=== PATIENT | male | born 1955 | race Caucasian/White ===

== ENCOUNTER 2023-10-10 14:19 | Observation (INO) ==
[2023-10-10 15:06] LABS: Basophils # (auto) 0.05 K/uL (0.00-0.20); Basophils % (auto) 0.8 %; Eosinophils # (auto) 0.17 K/uL (0.00-0.50); Eosinophils % (auto) 2.8 %; Hematocrit (blood only) 48.4 % (42.0-52.0); Hemoglobin 17.1 g/dl (14.0-18.0); Immature Granulocytes # (auto) 0.01 K/uL (0.01-0.20); Immature Granulocytes % (auto) 0.2 %; Lymphocytes # (auto) 2.26 K/uL (1.20-3.40); Lymphocytes % (auto) 37.2 %; Mean Corpuscular Hemoglobin 33.7 pg (25.0-34.0); Mean Corpuscular Hgb Conc 35.3 g/dL (32.0-36.0); Mean Corpuscular Volume 95.5 fL (80.0-100.0); Mean Platelet Volume 9.9 fL (9.4-12.4); Monocytes % (auto) 8.2 %; Neutrophils # (auto) 3.08 K/uL (1.40-6.50); Neutrophils % (auto) 50.8 %; Platelet Count 138 K/uL (130-400); RDW Coefficient of Variation 13.5 % (11.5-14.5); RDW Standard Deviation 47.4 fL (36.4-46.3); Red Blood Count 5.07 M/uL (4.70-6.10); White Blood Count 6.07 K/ul (4.8-10.8)
--- NOTE | 2023-10-10 15:07 | XRay Report ---
XR chest 1V not portable CLINICAL HISTORY: Chest pain, nonspecific TECHNIQUE: Single frontal radiograph of the chest was obtained. Comparison: None available at the time of this dictation. FINDINGS: No lines and tubes are seen. The cardiomediastinal silhouette is normal. The lungs are clear. No evid ence of pleural effusion or pneumothorax. IMPRESSION: No acute chest disease. ACT 112: Negative or not required by law. Electronically signed by: Chip Dey M.D. 10/10/2023 3:05 PM
[2023-10-10 15:20] LABS: Albumin Globulin Ratio 1.3 (0.9-2); Albumin Level 4.5 gm/dl (3.4-5.0); BUN Creatinine Ratio 17.5 (10-20); Bilirubin,Total 0.8 mg/dl (0.2-1.0); Calcium 10.8 mg/dl (8.6-10.3); Creatinine Clr Calc Pharmacy 77.9 ml/min; Est GFR (African American) 86.1 ml/min; Est GFR (Non-African American) 74.3 ml/min; Globulin 3.6 gm/dl (2.5-4.0); Potassium 3.6 mmol/L (3.5-5.1); Total Protein 8.1 gm/dl (6.0-8.3)
[2023-10-10 15:26] LABS: Troponin I High Sensitivity 11.5 pg/ml (0-20)
[2023-10-10 15:34] LABS: Partial Thromboplastin Time 28 Seconds (21-31); Prothrombin Time 11.4 Seconds (9.0-12.0)
--- NOTE | 2023-10-10 16:45 | Emergency Department Note ---
Impression & Plan Chest pain ED Provider Note Diagnosis: Chest pain Disposition: Admission CHIEF COMPLAINT: Chest pain HPI: Patient is a 68-year-old male presenting with complaint of intermittent episodes of chest pain. Patient states mostly left anterior chest wall sharp in nature. Patient states the symptoms are intermittent. Patient states been ongoing for multiple days time but worse today. Patient does state that started while shoveling snow 1 to 2 days prior. Patient does not have active symptoms when I evaluated in the ER bay. Patient states history of SVT status post ablation. Patient states strong family history of brother who in his early 60s of heart disease as well as a parent who of heart attack. Patient states his only other risk factor is hypertension as well as protein C. No prior cardiac catheterizations ever before. PAST MEDICAL HISTORY: See Below PAST SURGICAL HISTORY: See Below SOCIAL HISTORY: See Below HOME MEDICATIONS: See Below ALLERGIES: See Below VITALS: See Below PHYSICAL EXAMINATION: GENERAL: Well appearing, well nourished, NAD, non-toxic. EYE EXAM: Normal conjunctiva. OROPHARYNX: Moist mucus membranes. Grossly normal dentition. NECK: Supple, LUNGS: Clear to auscultation. Normal chest wall mechanics. HEART: NSR ABDOMEN: Abdomen soft, non-tender, normo-active bowel sounds, no masses, no rebound or guarding BACK: No CVA TTP. SKIN: No rashes and no bruising. UPPER EXTREMITIES: Upper extremities are grossly normal LOWER EXTREMITIES: Grossly normal, no edema. NEURO EXAM: A&O x3,, normal speech, moves all 4 extremities PSYCH: Cooperative MEDICAL DECISION MAKING: History obtained from: Patient ER Course: Patient is a 68-year-old male presenting with intermittent episodes of left anterior chest wall pain that radiates to left arm. Patient states a history of SVT status post ablation previously. Patient states a history of hypertension. Patient took aspirin today already. Patient states this originally started when he was shoveling snow the other day and now it has continued intermittently without any exertion. Patient's EKG without signs of ischemia. Patient's troponins are negative. Patient's case discussed with cardiology and due to strong family history recommends admission for observation for stress test. Labs (independently interpreted) are significant for: Negative troponins x 2 Imaging results (independently interpreted): Chest x-ray clear EKG interpretation (independently interpreted): Sinus rhythm no ST segment elevation or depression Consultants: Wildlife Photographer , discussed patient's presentation and EKG and family history. Due to significant family history of cardiac arrest from coronary artery disease in family members who recommends observation admission for stress test. Triage Nursing notes reviewed and agree them. Vital Signs: reviewed and remarkable for: no significant abnormalities Past Med/Surg History Social History Smoking Status: Never smoker Hx Substance Use: No Preferred Language: Telugu Communication Ability: Effective Beliefs That Will Affect Care: None Current Living Situation: Spouse Feels Safe at Home: Yes Assistive Devices: Glasses Allergies Allergies Allergy/AdvReac Type Severity Reaction Status Date / Time No Known Allergies Allergy Unverified 10/10/23 18:15 Home Meds Home Medications Medication Instructions Recorded Confirmed aspirin 81 mg tablet 81 mg PO [facility] 05/27/21 10/10/23 cetirizine 10 mg tablet 10 mg PO [facility] 05/27/21 10/10/23 multivitamin 1 cap PO [facility] 05/27/21 10/10/23 simvastatin 40 mg tablet 40 mg PO [facility] 05/27/21 10/10/23 tamsulosin 0.4 mg capsule 0.4 mg PO M 05/27/21 10/10/23 tramadol 50 mg tablet 50 mg PO Q8H PRN Pain 05/27/21 10/10/23 fluticasone propionate 50 2 spray intranasal DAILY PRN 10/10/23 10/10/23 mcg/actuation nasal Allergy Symptoms spray,suspension metoprolol succinate 100 mg 50 mg PO [facility] 10/10/23 10/10/23 tablet,extended release 24 hr Results & Data (ED) Vital Signs Vital Signs - 24 hr 10/10/23 14:23 10/10/23 15:57 10/10/23 15:57 Temperature 36.3 C L Temperature Source Temporal Artery Scan Pulse Rate 77 87 Pulse Rate [Right Radial] Pulse Rhythm [Right Radial] Respiratory Rate 16 15 Respiratory Effort / Characteristics Non-Labored Spontaneous Respiratory Depth Normal Respiratory Pattern Regular Blood Pressure 184/116 H Blood Pressure [Right Arm] Blood Pressure Mean 138 Blood Pressure Mean [Right Arm] Blood Pressure Position [Right Arm] Pulse Oximetry 95 95 95 Oxygen Delivery Method Room Air Room Air Room Air Sepsis Recent Fever Within 48 Hours No Sepsis New/Unexplained Change in Mental Status N/A Sepsis Action Taken by Nursing No Action Required 10/10/23 16:03 10/10/23 18:00 10/10/23 20:09 Temperature Temperature Source Pulse Rate Pulse Rate [Right Radial] 69 68 60 Pulse Rhythm [Right Radial] Regular Respiratory Rate 19 18 18 Respiratory Effort / Characteristics Non-Labored Non-Labored Spontaneous Respiratory Depth Normal Normal Respiratory Pattern Regular Regular Blood Pressure Blood Pressure [Right Arm] 133/89 140/100 176/95 H Blood Pressure Mean Blood Pressure Mean [Right Arm] 103 113 122 Blood Pressure Position [Right Arm] Lying Pulse Oximetry 95 97 93 Oxygen Delivery Method Room Air Room Air Sepsis Recent Fever Within 48 Hours Sepsis New/Unexplained Change in Mental Status Sepsis Action Taken by Nursing Laboratory Data 10/10/23 14:39 10/10/23 14:39 Lab Results 10/10/23 10/10/23 10/10/23 Range/Units 14:39 14:40 16:53 WBC 6.07 (4.8-10.8) K/ul RBC 5.07 (4.70-6.10) M/uL Hgb 17.1 (14.0-18.0) g/dl Hct 48.4 (42.0-52.0) % MCV 95.5 (80.0-100.0) fL MCH 33.7 (25.0-34.0) pg MCHC 35.3 (32.0-36.0) g/dL RDW Std Deviation 47.4 H (36.4-46.3) fL RDW Coeff of Chong 13.5 (11.5-14.5) % Plt Count 138 (130-400) K/uL MPV 9.9 (9.4-12.4) fL Immature Gran % (Auto) 0.2 % Neut % (Auto) 50.8 % Lymph % (Auto) 37.2 % [place] % (Auto) 8.2 % Eos % (Auto) 2.8 % Baso % (Auto) 0.8 % Neut # (Auto) 3.08 (1.40-6.50) K/uL Lymph # (Auto) 2.26 (1.20-3.40) K/uL [place] # (Auto) 0.50 (0.11-0.59) K/uL Eos # (Auto) 0.17 (0.00-0.50) K/uL Baso # (Auto) 0.05 (0.00-0.20) K/uL Immature Gran # (Auto) 0.01 (0.01-0.20) K/uL PT 11.4 (9.0-12.0) Seconds INR 1.0 (0.9-1.1) APTT 28 (21-31) Seconds PTT Ratio 1.0 D-Dimer 590 H* (0-500) ug/L FEU Sodium 141 (136-145) mmol/L Potassium 3.6 (3.5-5.1) mmol/L Chloride 103 (98-107) mmol/L Carbon Dioxide 31 (21-32) mmol/L Anion Gap 7 (3-11) BUN 18 (6-23) mg/dl Creatinine 1.03 (0.6-1.4) mg/dl Est Cr Clr Drug Dosing 77.9 ml/min Est GFR ( Amer) 86.1 ml/min Est GFR (Non-Af Amer) 74.3 ml/min BUN/Creatinine Ratio 17.5 (10-20) Glucose 113 H (70-99(Fasting)) mg/dl Estimat Average Glucose 151 mg/dl Hemoglobin A1c 6.9 H (4.5-5.6) % Calcium 10.8 H (8.6-10.3) mg/dl Magnesium 2.0 (1.7-2.4) mg/dl Total Bilirubin 0.8 (0.2-1.0) mg/dl AST 27 (13-39) U/L ALT 31 (7-52) U/L Alkaline Phosphatase 78 (34-104) U/L Troponin I High Sens 11.5 10.3 (0-20) pg/ml Total Protein 8.1 (6.0-8.3) gm/dl Albumin 4.5 (3.4-5.0) gm/dl Globulin 3.6 (2.5-4.0) gm/dl Albumin/Globulin Ratio 1.3 (0.9-2) Lyme Disease IgG Ab Negative (Negative) Lyme Disease IgM Ab Negative (Negative) Administered Medications Lactated Ringer's (Lr) 1,000 mls @ 100 mls/hr IV .Q10H ONE Stop: 10/11/23 05:36 Last Admin: 10/10/23 20:06 Dose: 100 mls/hr Documented By: MARIBEL Discontinued Medications Ioversol (Optiray 320 125ml) 118 ml IV ONCE ONE Stop: 10/10/23 20:30 Last Admin: 10/10/23 20:30 Dose: 118 ml Documented By: PLW Lisinopril (Lisinopril 2.5 Mg Tab) 2.5 mg PO NOW ONE Stop: 10/10/23 20:19 Last Admin: 10/10/23 20:58 Dose: 2.5 mg Documented By: MARIBEL Imaging Data Radiologist's Impression: Chest X-Ray 10/10/23 14:24 XR chest 1V not portable CLINICAL HISTORY: Chest pain, nonspecific TECHNIQUE: Single frontal radiograph of the chest was obtained. Comparison: None available at the time of this dictation. FINDINGS: No lines and tubes are seen. The cardiomediastinal silhouette is normal. The lungs are clear. No evidence of pleural effusion or pneumothorax. IMPRESSION: No acute chest disease. ACT 112: Negative or not required by law. Electronically signed by: Chip Dey M.D. 10/10/2023 3:05 PM Chest CTA 10/10/23 20:09 Exam(s): CTA CHEST IV Amt: 118 ml opti 320 EXAM: CT Angiography Chest With Intravenous Contrast CLINICAL HISTORY: Reason for exam: cp. TECHNIQUE: Axial computed tomographic angiography images of the chest with intravenous contrast. CTDI is 28.14 mGy and DLP is 901.78 mGy-cm. Automated exposure control was utilized for the study. A dose lowering technique was utilized adhering to the principles of ALARA. MIP reconstructed images were created and reviewed. COMPARISON: No relevant prior studies available. FINDINGS: Pulmonary arteries: Unremarkable. No pulmonary embolism. Aorta: No acute findings. No thoracic aortic aneurysm. Lungs: Unremarkable. No mass. No consolidation. Pleural space: Unremarkable. No significant effusion. No pneumothorax. Heart: Unremarkable. No cardiomegaly. No significant pericardial effusion. No evidence of RV dysfunction. Bones/joints: No acute fracture. No dislocation. Soft tissues: Unremarkable. Lymph nodes: Unremarkable. No enlarged lymph nodes. Liver: Hepatic steatosis. Gallbladder and bile ducts: Cholelithiasis. IMPRESSION: No acute findings in the visualized arteries of the chest. Electronically signed by: Monico Resendiz MD 10/10/23 21:20 PM Discharge Plan Visit Data Chief Complaint: Chest Pain Stated Complaint: CHEST PAINS, LEFT ARM PAIN, HIGH BP ED Provider: Varun Herron Discharge Problem: Chest pain Forms Stand Alone Forms: My [facility] [employer] Prescriptions Prescriptions: No Action cetirizine 10 mg Tablet 10 mg PO QAM tramadol 50 mg Tablet 50 mg PO Q8H PRN (Reason: Pain) simvastatin 40 mg Tablet 40 mg PO QAM tamsulosin 0.4 mg Capsule 0.4 mg PO QAM aspirin 81 mg Tablet 81 mg PO QAM multivitamin Capsule 1 cap PO QAM fluticasone propionate [Flonase] 50 mcg/actuation [place],Suspension 2 spray INTRANASAL DAILY PRN (Reason: Allergy Symptoms) Rx Instructions: administer into each nostril metoprolol succinate 100 mg tablet extended release 24 hr 50 mg PO QAM Referrals Referrals: PCP,NO [Primary Care Provider] -
[2023-10-10 17:35] LABS: Troponin I High Sensitivity 10.3 pg/ml (0-20)
[2023-10-10 17:57] LABS: D Dimer 590 ug/L FEU (0-500)
[2023-10-10] MEDS ORDERED: LACTATED RINGER'S 1,000 ML IV ONE (19:37)
--- NOTE | 2023-10-10 20:09 | History & Physical Report ---
Date of Service October 10, 2023 Assessment & Plan (1) Chest pain: Plan: ? Secondary to uncontrolled blood pressure Rule out ACS given patient risk factors for ischemic heart disease AVNRT status post ablation hyperlipidemia on statin Rx history protein C deficiency, family history of blood clots prediabetes, outpatient hemoglobin A1c of 6.1 last November 2022 BPH, stable on Flomax RISHABH on CPAP OBS PCU Add lisinopril to beta-naomy for BP control Cardiology consult in a.m. Re: Chest pain N.p.o. until patient seen by cardiology in anticipation of ischemic workup Update hemoglobin A1c DVT prophylaxis with Lovenox subcu Full code Patient requesting updates providers. Ms. Leticia Murrell, contact #[phone]. Text document was generated using [employer] voice recognition software. It may contain grammatical or spelling errors. Kindly contact undersigned for clarification of any documentation item in question. History of Present Illness Chief Complaint: Chest pain Primary Care Provider: Dr. Perkins History obtained from patient, family, and records. Medical history significant for hypertension, AVNRT status post ablation, hyperlipidemia, history protein C deficiency, prediabetes, BPH, RISHABH on CPAP. 2 days history of intermittent substernal pain with transient radiation to left arm. No headache, no cough complaints. No other associated symptoms. No prior episodes. Onset noted after shoveling snow few days ago. SBP 180s upon arrival at the ER. Medical History as above Surgical History : Carpal tunnel surgery, kidney stone procedure Family History : Heart disease, blood clots Personal/Social history : Non-smoker, no EtOH intake, retired factory employee Allergies Allergy/AdvReac Type Severity Reaction Status Date / Time No Known Allergies Allergy Unverified 10/10/23 18:15 Home Medications Medication Instructions Recorded Confirmed Type aspirin 81 mg tablet 81 mg PO QAM 05/27/21 10/10/23 History cetirizine 10 mg tablet 10 mg PO QAM 05/27/21 10/10/23 History multivitamin 1 cap PO QAM 05/27/21 10/10/23 History simvastatin 40 mg tablet 40 mg PO QAM 05/27/21 10/10/23 History tamsulosin 0.4 mg capsule 0.4 mg PO QAM 05/27/21 10/10/23 History tramadol 50 mg tablet 50 mg PO Q8H PRN Pain 05/27/21 10/10/23 History fluticasone propionate 50 2 spray intranasal DAILY PRN 10/10/23 10/10/23 History mcg/actuation nasal Allergy Symptoms spray,suspension metoprolol succinate 100 mg 50 mg PO QAM 10/10/23 10/10/23 History tablet,extended release 24 hr Past Med/Surg History Social History Smoking Status: Never smoker Do You Dip or Chew Tobacco: No; Hx Alcohol Use: Yes Alcohol type: beer Hx Substance Use: No Preferred Language: Zambian Communication Ability: Effective Model [employer] Greeter Required: No Beliefs That Will Affect Care: None Current Living Situation: Spouse Feels Safe at Home: Yes Assistive Devices: Glasses Review of Systems Review of Systems: As per HPI, all other systems reviewed and negative Physical Exam Physical Exam: GENERAL: Comfortable, obese, pleasant, no respiratory distress SKIN: Normal color, warm HEENT: [place] palpebral conjunctivae, no ptosis, dry buccal mucosa NECK : Supple, no tenderness CHEST : CTA, no tenderness HEART : RRR, no obvious murmurs ABDOMEN: Some distention, nontender EXTREMITIES : No LE swelling/tenderness, no other conspicuous deformities noted NEUROLOGIC : Coherent, no facial asymmetry, no other gross focality Results & Data Results & Data Vital Signs (Past 12 Hours) Vital Signs Temp Pulse Pulse Resp BP BP Pulse Ox 10/10/23 18:00 68 18 140/100 97 10/10/23 16:03 69 19 133/89 95 10/10/23 15:57 87 15 95 10/10/23 15:57 95 10/10/23 14:23 36.3 C L 77 16 184/116 H 95 O2 Del Method 10/10/23 18:00 Room Air 10/10/23 16:03 10/10/23 15:57 Room Air 10/10/23 15:57 Room Air 10/10/23 14:23 Room Air Laboratory Results Laboratory Results WBC 6.07 K/ul (4.8-10.8) 10/10/23 14:39 RBC 5.07 M/uL (4.70-6.10) 10/10/23 14:39 Hgb 17.1 g/dl (14.0-18.0) 10/10/23 14:39 Hct 48.4 % (42.0-52.0) 10/10/23 14:39 MCV 95.5 fL (80.0-100.0) 10/10/23 14:39 MCH 33.7 pg (25.0-34.0) 10/10/23 14:39 MCHC 35.3 g/dL (32.0-36.0) 10/10/23 14:39 RDW Std Deviation 47.4 fL (36.4-46.3) H 10/10/23 14:39 RDW Coeff of Chong 13.5 % (11.5-14.5) 10/10/23 14:39 Plt Count 138 K/uL (130-400) 10/10/23 14:39 MPV 9.9 fL (9.4-12.4) 10/10/23 14:39 Immature Gran % (Auto) 0.2 % 10/10/23 14:39 Neut % (Auto) 50.8 % 10/10/23 14:39 Lymph % (Auto) 37.2 % 10/10/23 14:39 [place] % (Auto) 8.2 % 10/10/23 14:39 Eos % (Auto) 2.8 % 10/10/23 14:39 Baso % (Auto) 0.8 % 10/10/23 14:39 Neut # (Auto) 3.08 K/uL (1.40-6.50) 10/10/23 14:39 Lymph # (Auto) 2.26 K/uL (1.20-3.40) 10/10/23 14:39 [place] # (Auto) 0.50 K/uL (0.11-0.59) 10/10/23 14:39 Eos # (Auto) 0.17 K/uL (0.00-0.50) 10/10/23 14:39 Baso # (Auto) 0.05 K/uL (0.00-0.20) 10/10/23 14:39 Immature Gran # (Auto) 0.01 K/uL (0.01-0.20) 10/10/23 14:39 PT 11.4 Seconds (9.0-12.0) 10/10/23 14:39 INR 1.0 (0.9-1.1) 10/10/23 14:39 APTT 28 Seconds (21-31) 10/10/23 14:39 PTT Ratio 1.0 10/10/23 14:39 D-Dimer 590 ug/L FEU (0-500) H* 10/10/23 16:53 Sodium 141 mmol/L (136-145) 10/10/23 14:39 Potassium 3.6 mmol/L (3.5-5.1) 10/10/23 14:39 Chloride 103 mmol/L (98-107) 10/10/23 14:39 Carbon Dioxide 31 mmol/L (21-32) 10/10/23 14:39 Anion Gap 7 (3-11) 10/10/23 14:39 BUN 18 mg/dl (6-23) 10/10/23 14:39 Creatinine 1.03 mg/dl (0.6-1.4) 10/10/23 14:39 Est Cr Clr Drug Dosing 77.9 ml/min 10/10/23 14:39 Est GFR ( Amer) 86.1 ml/min 10/10/23 14:39 Est GFR (Non-Af Amer) 74.3 ml/min 10/10/23 14:39 BUN/Creatinine Ratio 17.5 (10-20) 10/10/23 14:39 Glucose 113 mg/dl (70-99(Fasting)) H 10/10/23 14:39 Calcium 10.8 mg/dl (8.6-10.3) H 10/10/23 14:39 Magnesium 2.0 mg/dl (1.7-2.4) 10/10/23 16:53 Total Bilirubin 0.8 mg/dl (0.2-1.0) 10/10/23 14:39 AST 27 U/L (13-39) 10/10/23 14:39 ALT 31 U/L (7-52) 10/10/23 14:39 Alkaline Phosphatase 78 U/L (34-104) 10/10/23 14:39 Troponin I High Sens 10.3 pg/ml (0-20) 10/10/23 16:53 Total Protein 8.1 gm/dl (6.0-8.3) 10/10/23 14:39 Albumin 4.5 gm/dl (3.4-5.0) 10/10/23 14:39 Globulin 3.6 gm/dl (2.5-4.0) 10/10/23 14:39 Albumin/Globulin Ratio 1.3 (0.9-2) 10/10/23 14:39 Impressions Chest X-Ray 10/10/23 14:24 XR chest 1V not portable CLINICAL HISTORY: Chest pain, nonspecific TECHNIQUE: Single frontal radiograph of the chest was obtained. Comparison: None available at the time of this dictation. FINDINGS: No lines and tubes are seen. The cardiomediastinal silhouette is normal. The lungs are clear. No evidence of pleural effusion or pneumothorax. IMPRESSION: No acute chest disease. ACT 112: Negative or not required by law. Electronically signed by: Chip Dey M.D. 10/10/2023 3:[address] angio chest: No acute findings in the visualized arteries of the chest. Diagnostic Findings EKG as per my interpretation : Rate 75, NSR, LAD, LAFB, LVH, T wave flattening inferior leads
[2023-10-10] MEDS ORDERED: MoRPHine SULFATE 4 MG/ML 1 ML CARP\\VIAL IV PRN (20:13)
[2023-10-10] MEDS ORDERED: traMADol HCL 50 MG TABLET PO PRN (20:13)
[2023-10-10] MEDS ORDERED: PROMETHAZINE HCL 12.5 MG in SODIUM CHLORIDE 0.9% 50 ML IV PRN (20:13)
[2023-10-10] MEDS ORDERED: LORazepam 0.5 MG TAB PO PRN (20:13)
[2023-10-10] MEDS ORDERED: lisinopril 2.5 MG TAB PO ONE (20:18)
[2023-10-10] MEDS ORDERED: OPTIRAY 320 125ml IV ONE (20:29)
--- NOTE | 2023-10-10 21:21 | CT Scan Report ---
Exam(s): CTA CHEST IV Amt: 118 ml opti 320 EXAM: CT Angiography Chest With Intravenous Contrast CLINICAL HISTORY: Reason for exam: cp. TECHNIQUE: Axial computed tomographic angiography images of the chest with intravenous contrast. CTDI is 28.14 mGy and DLP is 901.78 mGy-cm. Automated exposure control was utilized for the study. A dose lowering technique was utilized adhering to the principles of ALARA. MIP reconstructed images were created and reviewed. COMPARISON: No relevant prior studies available. FINDINGS: Pulmonary arteries: Unremarkable. No pulmonary embolism. Aorta: No acute findings. No thoracic aortic aneurysm. Lungs: Unremarkable. No mass. No consolidation. Pleural space: Unremarkable. No significant effusion. No pneumothorax. Heart: Unremarkable. No cardiomegaly. No significant pericardial effusion. No evidence of RV dysfunction. Bones/joints: No acute fracture. No dislocation. Soft tissues: Unremarkable. Lymph nodes: Unremarkable. No enlarged lymph nodes. Liver: Hepatic steatosis. Gallbladder and bile ducts: Cholelithiasis. IMPRESSION: No acute findings in the visualized arteries of the chest. Electronically signed by: Monico Resendiz MD 10/10/23 21:20 PM
[2023-10-10 21:28] LABS: Estimated Average Glucose 151 mg/dl; Hemoglobin A1C 6.9 % (4.5-5.6)
[2023-10-10 21:29] LABS: Lyme Ab IgG w/WB Rflx Negative (Negative); Lyme Ab IgM w/WB Rflx Negative (Negative)
[2023-10-10] MEDS ORDERED: FLUTICASONE PROPIONATE NA SPR 16 GM BTL PRN (23:07)
--- NOTE | 2023-10-11 06:26 | Electrocardiogram Report ---
Test Reason : Blood Pressure : / mmHG Vent. Rate : 077 BPM Atrial Rate : 077 BPM P-R Int : 170 ms QRS Dur : 106 ms QT Int : 380 ms P-R-T Axes : 033 -44 015 degrees QTc Int : 430 ms Normal sinus rhythm Left axis deviation Moderate voltage criteria for LVH, may be normal variant Poor R wave progression, consider anterior HI vs. lead placement vs. LVH Abnormal ECG When compared with ECG of 27-MAY-2021 14:15, No significant change was found Confirmed by Paulino Michael ([id number]) on 10/11/2023 6:26:04 AM Referred By: Confirmed By:Paulino Michael
[2023-10-11 07:18] LABS: Basophils # (auto) 0.05 K/uL (0.00-0.20); Basophils % (auto) 0.9 %; Eosinophils # (auto) 0.22 K/uL (0.00-0.50); Eosinophils % (auto) 3.8 %; Hematocrit (blood only) 43.6 % (42.0-52.0); Hemoglobin 15.6 g/dl (14.0-18.0); Immature Granulocytes # (auto) 0.01 K/uL (0.01-0.20); Immature Granulocytes % (auto) 0.2 %; Mean Corpuscular Hemoglobin 34.1 pg (25.0-34.0); Mean Corpuscular Hgb Conc 35.8 g/dL (32.0-36.0); Mean Corpuscular Volume 95.2 fL (80.0-100.0); Mean Platelet Volume 9.9 fL (9.4-12.4); Monocytes # (auto) 0.58 K/uL (0.11-0.59); Monocytes % (auto) 9.9 %; Neutrophils % (auto) 44.2 %; Platelet Count 120 K/uL (130-400); RDW Coefficient of Variation 13.6 % (11.5-14.5); RDW Standard Deviation 47.8 fL (36.4-46.3); Red Blood Count 4.58 M/uL (4.70-6.10); White Blood Count 5.86 K/ul (4.8-10.8)
[2023-10-11 07:25] LABS: BUN Creatinine Ratio 19.4 (10-20); Calcium 9.7 mg/dl (8.6-10.3); Chol HDL Ratio 3.4 (0-5); Creatinine Clr Calc Pharmacy 88.5 ml/min; Est GFR (African American) 97.4 ml/min; Est GFR (Non-African American) 84.1 ml/min; Potassium 3.7 mmol/L (3.5-5.1)
[2023-10-11 07:33] VITALS: RESP 18
[2023-10-11] MEDS: METOPROLOL SUCC 50MG EXT REL TAB PO SCH ×2 (08:42→09:16)
[2023-10-11] MEDS ORDERED: NITROGLYCERIN SL 0.4 MG/TAB TAB SL PRN (08:46)
[2023-10-11] MEDS ORDERED: CETIRIZINE HCL 10 MG TABLET PO SCH (09:00)
[2023-10-11] MEDS ORDERED: MULTIVITAMIN TAB PO SCH (09:00)
[2023-10-11] MEDS ORDERED: ASPIRIN 81 MG ECTAB PO SCH (09:00)
[2023-10-11] MEDS ORDERED: ENOXAPARIN INJ 40 MG/0.4 ML SYR SQ SCH (09:00)
[2023-10-11] MEDS ORDERED: SIMVASTATIN 40 MG TAB PO SCH (09:00)
[2023-10-11] MEDS ORDERED: LOSARTAN POTASSIUM 25 MG TAB PO SCH (09:00)
[2023-10-11] MEDS ORDERED: TAMSULOSIN HCL 0.4 MG CAP PO SCH (09:00)
--- NOTE | 2023-10-11 09:29 | Cardiology Consultation ---
Date of Consultation October 11, 2023 Assessment & Plan (1) Atypical chest pain: (2) HTN (hypertension): (3) Coronary artery calcification: (4) Dyslipidemia, goal LDL below 70: Plan 68-year-old male admitted with chest discomfort. No evidence of NSTEMI. Pain ongoing for several days without ischemic ECG changes. Recommend bedside 2D transthoracic echocardiogram to assess LV function, regional wall motion, and exclude pericardial effusion. Add losartan 25 mg daily to improve blood pressure control. Continue hydrochlorothiazide and metoprolol. Metoprolol hold parameters adjusted for heart rate less than 50 bpm. If resting 2D transthoracic echocardiogram unremarkable, will likely proceed with treadmill stress testing later today. Further recommendations pending review of echocardiogram. Thank you for allow me to participate in the care of your patient. History of Present Illness Reason for Consultation: Chest pain Requesting Physician: Dr. Roach Attending Physician: Matthieu Barakat MD History of Present Illness 68-year-old male present to the emergency department per direction of the outpatient cardiology clinic due to chest discomfort. Describes chest pain beginning approximately 5 days ago. Describes a dull ache across his chest. Pain has been relatively constant and mild to moderate. Approximately 2 days ago in the a.m., he describes severe pain, 8/9/10. No associated shortness of breath, diaphoresis, or radiation of the discomfort. Mild, ongoing chest comfort noted since admission. Currently reports 1/10 chest pain. We administered 1 sublingual nitroglycerin at bedside with no improvement or change in the character of his discomfort. ECG without ischemic changes. His high-sensitivity troponin are within normal range. Due to an elevated D- dimer, CTA of the chest was performed which was negative for pulmonary embolus. Personal review of images demonstrates coronary artery calcifications. Blood pressure elevated on admission. Reports treatment with hydrochlorothiazide and metoprolol in the outpatient setting. Appears hydrochlorothiazide was not ordered on admission. He received 1 dose of lisinopril, 2.5 mg last evening. Blood pressure mildly improved this a.m. Allergies Allergy/AdvReac Type Severity Reaction Status Date / Time No Known Allergies Allergy Unverified 10/10/23 18:15 Home Medications Medication Instructions Recorded Confirmed Type aspirin 81 mg tablet 81 mg PO QAM 05/27/21 10/10/23 History cetirizine 10 mg tablet 10 mg PO QAM 05/27/21 10/10/23 History multivitamin 1 cap PO QAM 05/27/21 10/10/23 History simvastatin 40 mg tablet 40 mg PO QAM 05/27/21 10/10/23 History tamsulosin 0.4 mg capsule 0.4 mg PO QAM 05/27/21 10/10/23 History tramadol 50 mg tablet 50 mg PO Q8H PRN Pain 05/27/21 10/10/23 History fluticasone propionate 50 2 spray intranasal DAILY PRN 10/10/23 10/10/23 History mcg/actuation nasal Allergy Symptoms spray,suspension metoprolol succinate 100 mg 50 mg PO QAM 10/10/23 10/10/23 History tablet,extended release 24 hr Patient History Social History Smoking Status: Never smoker Do You Dip or Chew Tobacco: No; Hx Alcohol Use: Yes Alcohol type: beer Hx Substance Use: No Preferred Language: Beninese Communication Ability: Effective Cutter And Edge Trimmer Required: No Beliefs That Will Affect Care: None Current Living Situation: Spouse Feels Safe at Home: Yes Assistive Devices: Glasses Review of Systems Review of Systems: All systems reviewed & are unremarkable except as noted in Subjective Physical Exam Constitutional: well nourished; no acute distress Respiratory: no respiratory distress, no labored breathing and no retractions Auscultation: lungs clear to auscultation bilaterally; no crackles, no rales, no rhonchi and no wheezes Cardiovascular: Rate/Rhythm: regular rate, regular rhythm and + bradycardic Heart Sounds: normal S1 and normal S2; no murmur Vessels: radial pulses present; no JVD and no carotid bruit Extremities: no edema Gastrointestinal (Abdomen): Inspection/Auscultation: normal bowel sounds; abdomen not distended Percussion/Palpation: abdomen soft; abdomen nontender, no guarding and abdomen not rigid Neurologic: CN's II-XI intact bilaterally and moves all extremities; no focal motor deficits Results & Data Vital Signs (Past 12 Hours) Vital Signs Temp Pulse Pulse Resp BP Pulse Ox O2 Del Method 10/11/23 09:20 75 146/85 H 10/11/23 07:36 55 L 10/11/23 07:30 36.6 C 58 L 18 154/87 H 92 Room Air 10/11/23 03:36 17 95 01/16/24 03:14 36.5 C 54 L 16 148/86 H 94 CPAP 10/10/23 23:43 58 L 21 94 10/10/23 23:30 37.1 C 60 16 165/102 H 94 Room Air 10/10/23 23:19 63 FiO2 10/11/23 09:20 10/11/23 07:36 10/11/23 07:30 10/11/23 03:36 10/11/23 03:14 10/10/23 23:43 21 10/10/23 23:30 10/10/23 23:19 Laboratory Results Cardiac Enzymes 10/10/23 10/10/23 Range/Units 14:39 16:53 AST 27 (13-39) U/L Troponin I High Sens 11.5 10.3 (0-20) pg/ml Coagulation 10/10/23 Range/Units 14:39 PT 11.4 (9.0-12.0) Seconds APTT 28 (21-31) Seconds Lipids 10/11/23 Range/Units 06:50 Triglycerides 159 H (0-150) mg/dl Cholesterol 131 (0-200) mg/dl HDL Cholesterol 38 mg/dl Cholesterol/HDL Ratio 3.4 (0-5) CBC 10/10/23 10/11/23 Range/Units 14:39 06:50 WBC 6.07 5.86 (4.8-10.8) K/ul RBC 5.07 4.58 L (4.70-6.10) M/uL Hgb 17.1 15.6 (14.0-18.0) g/dl Hct 48.4 43.6 (42.0-52.0) % Plt Count 138 120 L (130-400) K/uL Neut # (Auto) 3.08 2.60 (1.40-6.50) K/uL Lymph # (Auto) 2.26 2.40 (1.20-3.40) K/uL [place] # (Auto) 0.50 0.58 (0.11-0.59) K/uL Eos # (Auto) 0.17 0.22 (0.00-0.50) K/uL Baso # (Auto) 0.05 0.05 (0.00-0.20) K/uL Comprehensive Metabolic Panel 10/10/23 10/11/23 Range/Units 14:39 06:50 Sodium 141 140 (136-145) mmol/L Potassium 3.6 3.7 (3.5-5.1) mmol/L Chloride 103 104 (98-107) mmol/L Carbon Dioxide 31 28 (21-32) mmol/L BUN 18 18 (6-23) mg/dl Creatinine 1.03 0.93 (0.6-1.4) mg/dl Glucose 113 H 142 H (70-99(Fasting)) mg/dl Calcium 10.8 H 9.7 (8.6-10.3) mg/dl AST 27 (13-39) U/L ALT 31 (7-52) U/L Alkaline Phosphatase 78 (34-104) U/L Total Protein 8.1 (6.0-8.3) gm/dl Albumin 4.5 (3.4-5.0) gm/dl Intake and Output 10/10/23 10/11/23 10/11/23 22:59 06:59 14:59 Intake Total 691.667 / 691.667 408.333 / 408.333 Output Total 450 / 450 Balance 241.667 / 241.667 408.333 / 408.333 Intake: IV 591.667 / 591.667 408.333 / 408.333 Lactated Ringer's 1,000 ml @ 591.667 / 591.667 408.333 / 408.333 100 mls/hr IV .Q10H ONE Rx#: [id number] Oral 100 / 100 Output: Urine 450 / 450 Other: Weight 103.1 kg Weight Measurement Method Built in [facility] (2) HTN (hypertension) Hypertension type: primary hypertension Qualified Code(s): I10 - Essential (primary) hypertension
[2023-10-11] MEDS ORDERED: hydroCHLOROthiazide 25 MG TAB PO SCH (09:30)
[2023-10-11] MEDS ORDERED: PERFLUTREN LIPID MICROSPHERE (DEFINITY) IV ONE (09:51)
[2023-10-11 11:36] VITALS: BP 130/85; PULSE 57; TEMP 98.1; O2SAT 90
--- NOTE | 2023-10-11 14:28 | Hospitalist Progress Note ---
Date of Service October 11, 2023 Assessment & Plan (1) Chest pain: Plan: Chest pain Likely due to uncontrolled hypertension --CTA:No acute findings in the visualized arteries of the chest. --ECHO no regional wall motion abnormality. EF 60 to 65%. Grade 1 diastolic dysfunction. Borderline concentric LVH. -- Troponin negative -- Lipid panel reviewed. LDL 61 --Nonischemic stress test --Appreciate cardiology input --Added losartan 25 mg daily for blood pressure control Continue HCTZ, metoprolol. Also on tamsulosin Continue aspirin 81 mg daily DM II New diagnosis HbA1C:6.9 Offered to be started on medications. Patient prefers to follow-up with PCP for further management Other chronic conditions: AVNRT S/P Ablation Hyperlipidemia: continue statin H/O Protein C deficiency, family history of blood clots BPH: Continue Flomax RISHABH on CPAP DVT Px: Lovenox SQ CODE STATUS Full code Disposition Home Admission and Anticipated Discharge Date Admission Date: October 10, 2023 Subjective Patient is seen and examined at bedside Reported minimal chest discomfort this morning during my encounter Had stress test today Denies any dyspnea, dizziness, nausea, vomiting, abdominal pain Discussed with patient's family at bedside Also discussed with cardiology today Review of Systems Review of Systems: All systems reviewed & are unremarkable except as noted in Subjective Physical Exam Physical Exam: Physical Exam: Vitals signs as noted above General Appearance:Obese, no apparent distress Head: normocephalic, Atraumatic Eyes: normal inspection, EOMI Neck: supple, Trachea midline Respiratory/Chest: Normal breath sounds, CTA, No accessory muscle use Cardiovascular: S1, S2, No murmur Abdomen/GI:Soft, Non tender, Bowel sounds present Extremities/Musculoskeletal:normal inspection, no edema Neurologic/Psych:AAOX3, grossly no focal neurological deficits Skin: normal color, warm Results & Data Results & Data Vital Signs (Past 12 Hours) Vital Signs Temp Pulse Pulse Resp BP Pulse Ox O2 Del Method 10/11/23 11:35 36.7 C 57 L 18 130/85 90 Room Air 10/11/23 09:20 75 146/85 H 10/11/23 07:36 55 L 10/11/23 07:30 36.6 C 58 L 18 154/87 H 92 Room Air 10/11/23 03:36 17 95 10/11/23 03:14 36.5 C 54 L 16 148/86 H 94 CPAP Laboratory Results Short CBC 10/10/23 10/11/23 Range/Units 14:39 06:50 WBC 6.07 5.86 (4.8-10.8) K/ul Hgb 17.1 15.6 (14.0-18.0) g/dl Hct 48.4 43.6 (42.0-52.0) % Plt Count 138 120 L (130-400) K/uL BMP 10/10/23 10/11/23 14:39 06:50 Sodium 141 140 Potassium 3.6 3.7 Chloride 103 104 Carbon Dioxide 31 28 BUN 18 18 Creatinine 1.03 0.93 Glucose 113 H 142 H Calcium 10.8 H 9.7 Liver Function 10/10/23 Range/Units 14:39 Total Bilirubin 0.8 (0.2-1.0) mg/dl AST 27 (13-39) U/L ALT 31 (7-52) U/L Alkaline Phosphatase 78 (34-104) U/L Albumin 4.5 (3.4-5.0) gm/dl
--- NOTE | 2023-10-11 14:35 | Discharge Summary ---
Date of Service October 11, 2023 Admission HPI Per Admitting Provider History obtained from patient, family, and records. Medical history significant for hypertension, AVNRT status post ablation, hyperlipidemia, history protein C deficiency, prediabetes, BPH, RISHABH on CPAP. 2 days history of intermittent substernal pain with transient radiation to left arm. No headache, no cough complaints. No other associated symptoms. No prior episodes. Onset noted after shoveling snow few days ago. SBP 180s upon arrival at the ER. Medical History as above Surgical History : Carpal tunnel surgery, kidney stone procedure Family History : Heart disease, blood clots Personal/Social history : Non-smoker, no EtOH intake, retired factory employee Admission Exam Per Admitting Provider GENERAL: Comfortable, obese, pleasant, no respiratory distress SKIN: Normal color, warm HEENT: [place] palpebral conjunctivae, no ptosis, dry buccal mucosa NECK : Supple, no tenderness CHEST : CTA, no tenderness HEART : RRR, no obvious murmurs ABDOMEN: Some distention, nontender EXTREMITIES : No LE swelling/tenderness, no other conspicuous deformities noted NEUROLOGIC : Coherent, no facial asymmetry, no other gross focality Principal Diagnosis Chest pain Hypertension Diabetes mellitus type 2 Discharge Data Allergies Allergy/AdvReac Type Severity Reaction Status Date / Time No Known Allergies Allergy Unverified 10/10/23 18:15 Consultations 10/10/23 19:33 ED Decision to Admit Stat 10/10/23 22:37 Consult Cardiology Routine Procedures Performed Laboratory Results WBC 5.86 K/ul (4.8-10.8) 10/11/23 06:50 RBC 4.58 M/uL (4.70-6.10) L 10/11/23 06:50 Hgb 15.6 g/dl (14.0-18.0) 10/11/23 06:50 Hct 43.6 % (42.0-52.0) 10/11/23 06:50 MCV 95.2 fL (80.0-100.0) 10/11/23 06:50 MCH 34.1 pg (25.0-34.0) H 10/11/23 06:50 MCHC 35.8 g/dL (32.0-36.0) 10/11/23 06:50 RDW Std Deviation 47.8 fL (36.4-46.3) H 10/11/23 06:50 RDW Coeff of [place] 13.6 % (11.5-14.5) 10/11/23 06:50 Plt Count 120 K/uL (130-400) L 10/11/23 06:50 MPV 9.9 fL (9.4-12.4) 10/11/23 06:50 Immature Gran % (Auto) 0.2 % 10/11/23 06:50 Neut % (Auto) 44.2 % 10/11/23 06:50 Lymph % (Auto) 41.0 % 10/11/23 06:50 [place] % (Auto) 9.9 % 10/11/23 06:50 Eos % (Auto) 3.8 % 10/11/23 06:50 Baso % (Auto) 0.9 % 10/11/23 06:50 Neut # (Auto) 2.60 K/uL (1.40-6.50) 10/11/23 06:50 Lymph # (Auto) 2.40 K/uL (1.20-3.40) 10/11/23 06:50 [place] # (Auto) 0.58 K/uL (0.11-0.59) 10/11/23 06:50 Eos # (Auto) 0.22 K/uL (0.00-0.50) 10/11/23 06:50 Baso # (Auto) 0.05 K/uL (0.00-0.20) 10/11/23 06:50 Immature Gran # (Auto) 0.01 K/uL (0.01-0.20) 10/11/23 06:50 PT 11.4 Seconds (9.0-12.0) 10/10/23 14:39 INR 1.0 (0.9-1.1) 10/10/23 14:39 APTT 28 Seconds (21-31) 10/10/23 14:39 PTT Ratio 1.0 10/10/23 14:39 D-Dimer 590 ug/L FEU (0-500) H* 10/10/23 16:53 Sodium 140 mmol/L (136-145) 10/11/23 06:50 Potassium 3.7 mmol/L (3.5-5.1) 10/11/23 06:50 Chloride 104 mmol/L (98-107) 10/11/23 06:50 Carbon Dioxide 28 mmol/L (21-32) 10/11/23 06:50 Anion Gap 8 (3-11) 10/11/23 06:50 BUN 18 mg/dl (6-23) 10/11/23 06:50 Creatinine 0.93 mg/dl (0.6-1.4) 10/11/23 06:50 Est Cr Clr Drug Dosing 88.5 ml/min 10/11/23 06:50 Est GFR ( Amer) 97.4 ml/min 10/11/23 06:50 Est GFR (Non-Af Amer) 84.1 ml/min 10/11/23 06:50 BUN/Creatinine Ratio 19.4 (10-20) 10/11/23 06:50 Glucose 142 mg/dl (70-99(Fasting)) H 10/11/23 06:50 Estimat Average Glucose 151 mg/dl 10/10/23 14:39 Hemoglobin A1c 6.9 % (4.5-5.6) H 10/10/23 14:39 Calcium 9.7 mg/dl (8.6-10.3) 10/11/23 06:50 Magnesium 2.0 mg/dl (1.7-2.4) 10/10/23 16:53 Total Bilirubin 0.8 mg/dl (0.2-1.0) 10/10/23 14:39 AST 27 U/L (13-39) 10/10/23 14:39 ALT 31 U/L (7-52) 10/10/23 14:39 Alkaline Phosphatase 78 U/L (34-104) 10/10/23 14:39 Troponin I High Sens 10.3 pg/ml (0-20) 10/10/23 16:53 Total Protein 8.1 gm/dl (6.0-8.3) 10/10/23 14:39 Albumin 4.5 gm/dl (3.4-5.0) 10/10/23 14:39 Globulin 3.6 gm/dl (2.5-4.0) 10/10/23 14:39 Albumin/Globulin Ratio 1.3 (0.9-2) 10/10/23 14:39 Triglycerides 159 mg/dl (0-150) H 10/11/23 06:50 Cholesterol 131 mg/dl (0-200) 10/11/23 06:50 LDL Cholesterol, Calc 61 mg/dl 10/11/23 06:50 VLDL Cholesterol, Calc 32 mg/dl (0-30) H 10/11/23 06:50 HDL Cholesterol 38 mg/dl 10/11/23 06:50 Cholesterol/HDL Ratio 3.4 (0-5) 10/11/23 06:50 Lyme Disease IgG Ab Negative (Negative) 10/10/23 14:40 Lyme Disease IgM Ab Negative (Negative) 10/10/23 14:40 Impressions Chest X-Ray 10/10/23 14:24 XR chest 1V not portable CLINICAL HISTORY: Chest pain, nonspecific TECHNIQUE: Single frontal radiograph of the chest was obtained. Comparison: None available at the time of this dictation. FINDINGS: No lines and tubes are seen. The cardiomediastinal silhouette is normal. The lungs are clear. No evidence of pleural effusion or pneumothorax. IMPRESSION: No acute chest disease. ACT 112: Negative or not required by law. Electronically signed by: Chip Dey M.D. 10/10/2023 3:05 PM Chest CTA 10/10/23 20:09 Exam(s): CTA CHEST IV Amt: 118 ml opti 320 EXAM: CT Angiography Chest With Intravenous Contrast CLINICAL HISTORY: Reason for exam: cp. TECHNIQUE: Axial computed tomographic angiography images of the chest with intravenous contrast. CTDI is 28.14 mGy and DLP is 901.78 mGy-cm. Automated exposure control was utilized for the study. A dose lowering technique was utilized adhering to the principles of ALARA. MIP reconstructed images were created and reviewed. COMPARISON: No relevant prior studies available. FINDINGS: Pulmonary arteries: Unremarkable. No pulmonary embolism. Aorta: No acute findings. No thoracic aortic aneurysm. Lungs: Unremarkable. No mass. No consolidation. Pleural space: Unremarkable. No significant effusion. No pneumothorax. Heart: Unremarkable. No cardiomegaly. No significant pericardial effusion. No evidence of RV dysfunction. Bones/joints: No acute fracture. No dislocation. Soft tissues: Unremarkable. Lymph nodes: Unremarkable. No enlarged lymph nodes. Liver: Hepatic steatosis. Gallbladder and bile ducts: Cholelithiasis. IMPRESSION: No acute findings in the visualized arteries of the chest. Electronically signed by: Monico Resendiz MD 10/10/23 21:20 PM Ordered Studies 10/10/23 20:09 CT angio chest PE protocol Stat Diabetes Follow up Diabetes Follow-up Needed for Newly Diagnosed Diabetes Hospital Course (1) Chest pain: Chest pain Likely due to uncontrolled hypertension --CTA:No acute findings in the visualized arteries of the chest. --ECHO no regional wall motion abnormality. EF 60 to 65%. Grade 1 diastolic dysfunction. Borderline concentric LVH. -- Troponin negative -- Lipid panel reviewed. LDL 61 --Nonischemic stress test --Appreciate cardiology input --Added losartan 25 mg daily for blood pressure control Continue HCTZ, metoprolol. Also on tamsulosin Continue aspirin 81 mg daily DM II New diagnosis HbA1C:6.9 Offered to be started on medications. Patient prefers to follow-up with PCP for further management Other chronic conditions: AVNRT S/P Ablation Hyperlipidemia: continue statin H/O Protein C deficiency, family history of blood clots BPH: Continue Flomax RISHABH on CPAP DVT Px: Lovenox SQ CODE STATUS Full code Disposition Home Total Time Total Time Spent Total Time Spent (In Minutes): 58 minutes Discharge Plan Discharge Items Patient Disposition: Home - Self-Care Reason For Visit: CP Discharge Diagnosis: Chest pain Hypertension Diabetes mellitus type 2 Activity: Per Instructions section Exercise/Sports: Gradually increase as tolerated Non-emergency contact: Primary Care Provider Call non-emergency contact if: you have any medication questions, your symptoms worsen, your pain is concerning for you and you have a fever Follow-up/Referrals: PCP,NO [Primary Care Provider] - Diet: Carb Consistent or DM2 and Heart Healthy Add Attending Provider Instructions: Follow-up with your primary care physician in 1 week -- Monitor your blood pressure regularly at home. Discuss with your physician for further adjustment of medications as needed. --Discussed with your physician for management of diabetes mellitus as advised. Seek immediate medical attention if your symptoms reoccur or worsen Please take all medications as instructed on discharge list below. Please call if you have any questions or problems. You can reach a [facility] hospitalist on duty at [facility] 24 hours a day by calling [phone] Addtl Tierce Filler Provider Instructions: ACTIVITY RECOMMENDATIONS: Excess manipulation of the wrist should be avoided for the next 24-48 hours. * No lifting over 2 pounds (approximately a 1/2 gallon of milk) with the utilized arm for 24 hours. * No strenuous activity such as bowling or tennis for 3 days. * Keep the site of the procedure covered with a bandage for 24 hours. *You may shower the day after the procedure. Do not take a tub bath or submerge the puncture site in water for the next 3 days. *Do not operate any motorized equipment for 3 days. SPECIAL CARE INSTRUCTIONS: The site may be slightly bruised and sore following your procedure. Should any of the following occur, contact the Dr. who performed your procedure. 1. Redness/inflammation, swelling, chills, or fever, or colored drainage at procedure site within 3-7 days after your procedure. 2. Coldness, discoloration, ongoing numbness, severe pain, or swelling. Expect mild tingling of hand and tenderness at the puncture site for up to three days. If this persists beyond three days, or other symptoms develop, notify the Dr. who performed your procedure. BLEEDING: If the procedure site on your wrist begins to bleed, do not panic 1. Place 1 or 2 fingers firmly just slightly above the insertion site to stop the bleeding. You may be able to feel your pulse as you hold pressure. 2. Lift your finger after 5 minutes to see if the bleeding has stopped. 3. Once the bleeding has stopped, gently wipe the wrist area clean with a bandage. * If the bleeding from your wrist does not stop after 10 minutes, or if there is a large amount of bleeding or spurting, call 911 (do not drive yourself to the hospital). SKIN IRRITATION: * You may experience some redness and/or swelling in the area where radiation was administered. If any skin irritation occurs, please contact your family physician. FOLLOW UP VISIT: Keep any scheduled doctor appointments. Pending Studies at Discharge: No Stand-Alone Forms: My [facility] [employer], Smoking Cessation Medications and DC Order Prescriptions: New losartan 25 mg Tablet 25 mg PO QAM Qty: 30 1RF hydrochlorothiazide 25 mg Tablet 25 mg PO QAM Qty: 30 1RF Continued cetirizine 10 mg Tablet 10 mg PO QAM tramadol 50 mg Tablet 50 mg PO Q8H PRN (Reason: Pain) simvastatin 40 mg Tablet 40 mg PO QAM tamsulosin 0.4 mg Capsule 0.4 mg PO QAM aspirin 81 mg Tablet 81 mg PO QAM multivitamin Capsule 1 cap PO QAM fluticasone propionate [Flonase] 50 mcg/actuation [place],Suspension 2 spray INTRANASAL DAILY PRN (Reason: Allergy Symptoms) Rx Instructions: administer into each nostril metoprolol succinate 100 mg tablet extended release 24 hr 50 mg PO QAM Discharge Orders: Discharge Order (Routine); Ordered 10/11/23 Ordered By: Matthieu Chowdhury/Other Patient Handouts: Diabetes: Meal Planning, Type 2 Diabetes Admission Data Admit Date/Time: 10/10/23 20:12 Attending Provider: Matthieu Barakat Admit Provider: Tone Roach Primary Care Provider: PCP,NO Other Providers: Tone Roach; Wendy Cee; Blaze Alcaraz; Raul Tavares; Joe Holm; Jaswinder Pearce; Rod Ko; Faviola Chaudhari; Zoë Cole; Wendy Hartman; Kvng Barrett; Efren Rosenberg; Mickie Simpson; Rosa Tripathi; Naeem Gerardo George
[2023-10-11] MEDS ORDERED: lisinopril 2.5 MG TAB PO SCH (21:00)
--- NOTE | 2023-10-14 06:41 | Electrocardiogram Report ---
Test Reason : Blood Pressure : / mmHG Vent. Rate : 053 BPM Atrial Rate : 053 BPM P-R Int : 172 ms QRS Dur : 106 ms QT Int : 404 ms P-R-T Axes : 026 -34 -11 degrees QTc Int : 379 ms Sinus bradycardia Left axis deviation Nonspecific T wave abnormality Abnormal ECG When compared with ECG of 10-OCT-2023 14:31, Nonspecific T wave abnormality now evident in Anterolateral leads Confirmed by Paulino Michael ([id number]) on 10/14/2023 6:41:43 AM Referred By: REFERRED SELF Confirmed By:Paulino Michael
== END 2023-10-11 16:00 | disposition home or self-care (01) ==
LOC: 2S 14:19 → ED 14:19 → 2S 23:20
DX: E78.5 Hyperlipidemia, unspecified; Z68.34 Body mass index [BMI] 34.0-34.9, adult; N40.0 Benign prostatic hyperplasia without lower urinary tract symptoms; Z79.82 Long term (current) use of aspirin; E66.9 Obesity, unspecified; Z79.899 Other long term (current) drug therapy; M79.602 Pain in left arm; R07.2 Precordial pain; R73.03 Prediabetes; G47.33 Obstructive sleep apnea (adult) (pediatric); I10 Essential (primary) hypertension